=== PATIENT | male | born 1940 | race Caucasian/White ===

== ENCOUNTER 2018-04-01 18:15 | Inpatient (IN) | payer MEDICARE, OTHER ==
[~2018-04-01] VITALS: Ht 182.9 cm; Wt 72.7 kg
[2018-04-01] MEDS ORDERED: normal saline 1000ML IV soln IVB ONE (18:45)
[2018-04-01 18:57] LABS: BASOPHILS % (AUTO) 0.7 % (0-1); EOSINOPHILS # (AUTO) 0.1 X10'3 (0-0.9); EOSINOPHILS % (AUTO) 1.7 % (0-6); HEMATOCRIT 41.4 % (42.0-52.0); LYMPHOCYTES # (AUTO) 0.7 X10'3 (1.1-4.8); MEAN CORPUSCULAR HEMOGLOBIN 32.1 PG (27.0-31.0); MEAN CORPUSCULAR HGB CONC 33.7 % (33.0-36.5); MEAN CORPUSCULAR VOLUME 95.2 FL (78-98); MONOCYTES # (AUTO) 0.3 X10'3 (0-0.9); MONOCYTES % (AUTO) 4.6 % (2-12); NEUTROPHILS # (AUTO) 5.6 X10'3 (1.8-7.7); PLATELET COUNT 273 X10'3 (140-440); RED BLOOD COUNT 4.35 X10'6 (4.70-6.10); RED CELL DISTRIBUTION WIDTH 14.1 % (11.5-14.5); WHITE BLOOD COUNT 6.8 X10'3 (4.5-11.0)
[2018-04-01 19:09] LABS: CLARITY,URINE CLEAR (Clear); COLOR,URINE YELLOW (Yellow); GLUCOSE, URINE NEGATIVE (Neg); KETONES,URINE TRACE mg/dl (Neg); LEUKOCYTE ESTERASE ,URINE NEGATIVE (Neg); NITRITES, URINE POSITIVE (Neg); OCCULT BLOOD,URINE MODERATE (Neg); PROTEIN,URINE NEGATIVE (Neg); UROBILINOGEN,URINE 0.2 E.U/dL (0.2-1.0)
[2018-04-01 19:13] LABS: INR 0.9 INR; PARTIAL THROMBOPLASTIN TIME 27 SECONDS (22-32); PROTHROMBIN TIME 9.6 SECONDS (9.0-12.0)
[2018-04-01 19:16] LABS: UA COLLECTION TYPE CLN CATCH MIDSTREAM
[2018-04-01 19:19] LABS: RBC,URINE 0-2 /HPF (0-2); WBC,URINE 0-4 /HPF (0-4)
[2018-04-01 19:20] LABS: BACTERIA,URINE FEW /HPF (Neg); MUCUS STRANDS NONE SEEN /LPF (Neg); SQUAMOUS EPITHELIAL CELL,UR NONE SEEN /LPF (FEW); URINE AMPHETAMINE SCREEN NEGATIVE (Neg); URINE BARBITUATE SCREEN NEGATIVE (Neg); URINE BENZODIAZEPINES SCREEN NEGATIVE (Neg); URINE CANNABINOID SCREEN NEGATIVE (Neg); URINE COCAINE SCREEN NEGATIVE (Neg); URINE METHADONE SCREEN NEGATIVE (Neg); URINE OPIATE SCREEN NEGATIVE (Neg); URINE PHENCYCLIDINE SCREEN NEGATIVE (Neg)
[2018-04-01 19:21] LABS: ALANINE AMINOTRANSFERASE 19 U/L (12-78); ALBUMIN 3.3 G/DL (3.4-5.0); ALKALINE PHOSPHATASE 69 IU/L (46-116); ANION GAP 9 (8-16); ASPARTATE AMINO TRANSFERASE 18 U/L (10-37); BILIRUBIN,TOTAL 0.3 MG/DL (0.1-1.0); BLOOD UREA NITROGEN 8 MG/DL (7-18); BUN/CREATININE RATIO 10.4 (5.4-32.0); CALCIUM 8.9 MG/DL (8.5-10.1); CHLORIDE 94 MMOL/L (99-107); CREATININE 0.77 MG/DL (0.60-1.10); ETHANOL 0.035 GM/DL (0.0-0.010); GLUCOSE 134 MG/DL (70-104); SODIUM 129 MMOL/L (135-145); TOTAL CARBON DIOXIDE 26.2 MMOL/L (24-32); TOTAL PROTEIN 6.7 G/DL (6.4-8.2); eGFR > 90 ML/MIN
[2018-04-01] MEDS ORDERED: normal saline 1000ml 1,000 ML IV ONE (20:00)
[2018-04-01] MEDS ORDERED: acetaminophen 325mg tablet PO PRN ×2 (22:40)
[2018-04-01] MEDS ORDERED: haloperidol lactate 5mg/ml inj IM PRN (22:40)
[2018-04-01] MEDS ORDERED: magnesium hydroxide 30ml (MOM) UD suspension PO PRN (22:40)
[2018-04-01] MEDS ORDERED: mag hydrox/Alum hydrox/simeth 30ml oral suspension PO PRN (22:40)
[2018-04-01] MEDS ORDERED: haloperidol 5mg tablet PO PRN (22:40)
[2018-04-01] MEDS ORDERED: LORazepam 2 mg/ml vial IV PRN (22:40)
[2018-04-01] MEDS ORDERED: ondansetron/PF 4mg/2ml inj IV PRN (22:40)
[2018-04-01] MEDS ORDERED: NO HOME MEDS (23:16)
[2018-04-02] MEDS ORDERED: aspirin 81mg tablet.DR PO ONE (00:05)
[2018-04-02] MEDS: CefTRIAXone 2gm/D5W 50ml 50 ML IV SCH ×2 (00:27→23:07)
[2018-04-02] MEDS ORDERED: iohexol 350MG/ML 100ml bottle IV ONE (00:35)
[2018-04-02] MEDS ORDERED: enoxaparin 30mg/0.3ml syringe SUBCUT ONE (02:55)
[2018-04-02] MEDS ORDERED: enoxaparin 40mg/0.4ml syringe SUBCUT ONE (02:55)
[2018-04-02 04:30] VITALS: BP 150/85
[2018-04-02 07:10] LABS: BASOPHILS % (AUTO) 0.3 % (0-1); EOSINOPHILS # (AUTO) 0.1 X10'3 (0-0.9); EOSINOPHILS % (AUTO) 1.9 % (0-6); HEMOGLOBIN 13.1 g/dl (14.0-17.9); LYMPHOCYTES # (AUTO) 0.8 X10'3 (1.1-4.8); LYMPHOCYTES % (AUTO) 12.4 % (21-51); MEAN CORPUSCULAR HEMOGLOBIN 31.9 PG (27.0-31.0); MEAN CORPUSCULAR HGB CONC 33.6 % (33.0-36.5); MEAN CORPUSCULAR VOLUME 94.9 FL (78-98); MEAN PLATELET VOLUME 7.1 FL (7.4-10.4); MONOCYTES # (AUTO) 0.5 X10'3 (0-0.9); MONOCYTES % (AUTO) 7.7 % (2-12); NEUTROPHILS # (AUTO) 4.8 X10'3 (1.8-7.7); NEUTROPHILS % (AUTO) 77.7 % (42-75); PLATELET COUNT 255 X10'3 (140-440); RED CELL DISTRIBUTION WIDTH 14.3 % (11.5-14.5); WHITE BLOOD COUNT 6.2 X10'3 (4.5-11.0)
[2018-04-02 07:23] LABS: ALBUMIN 2.9 G/DL (3.4-5.0); ANION GAP 8 (8-16); BLOOD UREA NITROGEN 7 MG/DL (7-18); BUN/CREATININE RATIO 10.4 (5.4-32.0); CALCIUM 8.8 MG/DL (8.5-10.1); CHLORIDE 98 MMOL/L (99-107); CREATININE 0.67 MG/DL (0.60-1.10); GLUCOSE 92 MG/DL (70-104); MAGNESIUM 1.9 MG/DL (1.5-2.4); POTASSIUM 3.9 MMOL/L (3.5-5.1); SODIUM 131 MMOL/L (135-145); TOTAL CARBON DIOXIDE 24.9 MMOL/L (24-32); eGFR > 90 ML/MIN
[2018-04-02] MEDS: folic acid 1mg tablet PO SCH (07:23)
[2018-04-02] MEDS: thiamine 100mg tablet PO SCH (07:24)
[2018-04-02] MEDS: multivitamins, therapeutics tablet PO SCH (07:24)
[2018-04-02] MEDS ORDERED: aspirin 325mg tablet PO SCH (08:30)
[2018-04-02 08:44] VITALS: BP 124/75
[2018-04-02 09:29] LABS: CHOL/HDL RATIO 1.7 (0.00-4.99); CHOLESTEROL 169 MG/DL (0-200); HDL CHOLESTEROL 98 MG/DL (35-60); LDL CHOLESTEROL 65 MG/DL (50-100); TRIGLYCERIDES 40 MG/DL (20-135)
[2018-04-02] MEDS: normal saline 1000ml 1,000 ML IV SCH ×2 (09:44→23:18)
[2018-04-02 11:00] VITALS: BP 119/71
[2018-04-02 15:00] VITALS: BP 113/62
[2018-04-02] MEDS ORDERED: aminophylline 250mg/10ml inj. IV PRN (18:20)
[2018-04-02] MEDS ORDERED: regadenoson 0.4mg/5ml syringe IV ONE (18:20)
[2018-04-02] MEDS ORDERED: metoprolol tartrate 1mg/ml inj IV PRN (18:20)
[2018-04-02] MEDS ORDERED: nitroGLYCERIN 0.4mg SUBLingual tab SL PRN (18:20)
[2018-04-02 19:00] VITALS: BP 135/73
[2018-04-02] MEDS: metoprolol tartrate 12.5mg (1/2 tablet) PO SCH (20:22)
[2018-04-02 23:00] VITALS: BP 139/56
[2018-04-03] VITALS (12 sets, daily range): BP systolic 89–146; BP diastolic 54–96
[2018-04-03 07:54] LABS: BASOPHILS % (AUTO) 0.5 % (0-1); EOSINOPHILS # (AUTO) 0.1 X10'3 (0-0.9); EOSINOPHILS % (AUTO) 2.6 % (0-6); HEMATOCRIT 37.4 % (42.0-52.0); HEMOGLOBIN 12.9 g/dl (14.0-17.9); LYMPHOCYTES # (AUTO) 0.7 X10'3 (1.1-4.8); LYMPHOCYTES % (AUTO) 13.6 % (21-51); MEAN CORPUSCULAR HEMOGLOBIN 32.7 PG (27.0-31.0); MEAN CORPUSCULAR HGB CONC 34.5 % (33.0-36.5); MEAN PLATELET VOLUME 7.7 FL (7.4-10.4); MONOCYTES # (AUTO) 0.4 X10'3 (0-0.9); MONOCYTES % (AUTO) 7.5 % (2-12); NEUTROPHILS # (AUTO) 3.9 X10'3 (1.8-7.7); NEUTROPHILS % (AUTO) 75.8 % (42-75); PLATELET COUNT 245 X10'3 (140-440); RED BLOOD COUNT 3.94 X10'6 (4.70-6.10); WHITE BLOOD COUNT 5.2 X10'3 (4.5-11.0)
[2018-04-03 08:23] LABS: ALBUMIN 2.7 G/DL (3.4-5.0); ANION GAP 7 (8-16); BLOOD UREA NITROGEN 8 MG/DL (7-18); BUN/CREATININE RATIO 12.9 (5.4-32.0); CALCIUM 8.6 MG/DL (8.5-10.1); CHLORIDE 99 MMOL/L (99-107); CREATININE 0.62 MG/DL (0.60-1.10); GLUCOSE 86 MG/DL (70-104); MAGNESIUM 1.9 MG/DL (1.5-2.4); POTASSIUM 3.7 MMOL/L (3.5-5.1); SODIUM 132 MMOL/L (135-145); TOTAL CARBON DIOXIDE 25.8 MMOL/L (24-32); eGFR > 90 ML/MIN
[2018-04-03] MEDS: aspirin 81mg tablet.DR PO SCH (08:53)
[2018-04-03] MEDS: enoxaparin 40mg/0.4ml syringe SUBCUT SCH (08:53)
[2018-04-03] MEDS ORDERED: aminophylline inj. 10 ML IV ONE (10:10)
[2018-04-03] MEDS ORDERED: regadenoson 0.4mg/5ml syringe IV ONE (10:10)
[2018-04-03] MEDS: multivitamins, therapeutics tablet PO SCH (12:05)
[2018-04-03] MEDS: atorvastatin 20mg tablet PO SCH (12:07)
[2018-04-03] MEDS: thiamine 100mg tablet PO SCH (12:08)
[2018-04-03] MEDS: folic acid 1mg tablet PO SCH (12:09)
[2018-04-03] MEDS: metoprolol tartrate 12.5mg (1/2 tablet) PO SCH ×2 (12:09→20:22)
[2018-04-03] MEDS: normal saline 1000ml 1,000 ML IV SCH (13:21)
[2018-04-03] MEDS ORDERED: potassium Cl 20 mEq SR tablet PO STA (16:43)
[2018-04-03] MEDS ORDERED: magnesium 2GM in 50ml NS 50 ML IV ONE (16:45)
[2018-04-03] MEDS ORDERED: haloperidol lactate 5mg/ml inj IM PRN (18:15)
[2018-04-03] MEDS ORDERED: haloperidol 5mg tablet PO PRN (18:15)
[2018-04-03] MEDS ORDERED: dextrose 50%-water 50ml dispensing syringe IV PRN (18:15)
[2018-04-03] MEDS ORDERED: LORazepam 2 mg/ml vial IV PRN ×2 (18:15→22:40)
[2018-04-03] MEDS: CefTRIAXone 2gm/D5W 50ml 50 ML IV SCH (22:34)
[2018-04-03] MEDS ORDERED: LORazepam 1 MG tablet PO PRN (22:40)
[2018-04-04 03:00] VITALS: BP 115/62
[2018-04-04] MEDS: normal saline 1000ml 1,000 ML IV SCH ×2 (03:39→16:35)
[2018-04-04 06:00] VITALS: BP 124/59
[2018-04-04 07:18] LABS: BASOPHILS # (AUTO) 0.1 X10'3 (0-0.2); BASOPHILS % (AUTO) 0.8 % (0-1); EOSINOPHILS # (AUTO) 0.1 X10'3 (0-0.9); EOSINOPHILS % (AUTO) 1.4 % (0-6); HEMATOCRIT 40.5 % (42.0-52.0); HEMOGLOBIN 13.5 g/dl (14.0-17.9); LYMPHOCYTES # (AUTO) 0.7 X10'3 (1.1-4.8); LYMPHOCYTES % (AUTO) 9.4 % (21-51); MEAN CORPUSCULAR HGB CONC 33.4 % (33.0-36.5); MEAN CORPUSCULAR VOLUME 95.6 FL (78-98); MEAN PLATELET VOLUME 8.2 FL (7.4-10.4); MONOCYTES # (AUTO) 0.5 X10'3 (0-0.9); MONOCYTES % (AUTO) 6.3 % (2-12); NEUTROPHILS # (AUTO) 6.1 X10'3 (1.8-7.7); NEUTROPHILS % (AUTO) 82.1 % (42-75); PLATELET COUNT 242 X10'3 (140-440); RED BLOOD COUNT 4.23 X10'6 (4.70-6.10); RED CELL DISTRIBUTION WIDTH 14.1 % (11.5-14.5); WHITE BLOOD COUNT 7.4 X10'3 (4.5-11.0)
[2018-04-04 07:28] LABS: ALBUMIN 2.9 G/DL (3.4-5.0); ANION GAP 7 (8-16); BLOOD UREA NITROGEN 9 MG/DL (7-18); BUN/CREATININE RATIO 14.1 (5.4-32.0); CALCIUM 8.4 MG/DL (8.5-10.1); CHLORIDE 95 MMOL/L (99-107); CREATININE 0.64 MG/DL (0.60-1.10); GLUCOSE 77 MG/DL (70-104); MAGNESIUM 2.1 MG/DL (1.5-2.4); POTASSIUM 3.9 MMOL/L (3.5-5.1); SODIUM 127 MMOL/L (135-145); TOTAL CARBON DIOXIDE 24.6 MMOL/L (24-32); eGFR > 90 ML/MIN
[2018-04-04] MEDS: enoxaparin 40mg/0.4ml syringe SUBCUT SCH (09:28)
[2018-04-04] MEDS: aspirin 81mg tablet.DR PO SCH (09:29)
[2018-04-04] MEDS: folic acid 1mg tablet PO SCH (09:29)
[2018-04-04] MEDS: atorvastatin 20mg tablet PO SCH (09:29)
[2018-04-04] MEDS: thiamine 100mg tablet PO SCH (09:29)
[2018-04-04] MEDS: multivitamins, therapeutics tablet PO SCH (09:30)
[2018-04-04] MEDS: metoprolol tartrate 12.5mg (1/2 tablet) PO SCH ×2 (09:30→19:45)
[2018-04-04 11:00] VITALS: BP 113/60
[2018-04-04] MEDS: nicotine 14mg patch - 24hr TD SCH (11:33)
[2018-04-04] MEDS ORDERED: potassium Cl 40MEQ/NS 500ml 500 ML IV PRN ×2 (12:35)
[2018-04-04] MEDS ORDERED: magnesium 4gm in 100ml NS 100 ML IV PRN (12:35)
[2018-04-04] MEDS ORDERED: magnesium Cl slow-release 64mg tablet PO PRN (12:35)
[2018-04-04] MEDS ORDERED: potassium Cl 20 mEq SR tablet PO PRN (12:35)
[2018-04-04] MEDS: potassium Cl 20 mEq SR tablet PO PRN ×2 (14:22→23:35)
[2018-04-04 15:00] VITALS: BP 95/59
[2018-04-04 18:00] VITALS: BP 138/67
[2018-04-04 22:00] VITALS: BP 138/68
[2018-04-05] VITALS (7 sets, daily range): BP systolic 120–147; BP diastolic 55–83
[2018-04-05 05:06] LABS: BASOPHILS % (AUTO) 0.7 % (0-1); EOSINOPHILS # (AUTO) 0.2 X10'3 (0-0.9); EOSINOPHILS % (AUTO) 3.7 % (0-6); HEMATOCRIT 40.9 % (42.0-52.0); HEMOGLOBIN 13.7 g/dl (14.0-17.9); LYMPHOCYTES # (AUTO) 0.9 X10'3 (1.1-4.8); LYMPHOCYTES % (AUTO) 14.1 % (21-51); MEAN CORPUSCULAR HEMOGLOBIN 32.1 PG (27.0-31.0); MEAN CORPUSCULAR HGB CONC 33.6 % (33.0-36.5); MEAN CORPUSCULAR VOLUME 95.6 FL (78-98); MEAN PLATELET VOLUME 8.1 FL (7.4-10.4); MONOCYTES # (AUTO) 0.5 X10'3 (0-0.9); MONOCYTES % (AUTO) 8.7 % (2-12); NEUTROPHILS # (AUTO) 4.5 X10'3 (1.8-7.7); NEUTROPHILS % (AUTO) 72.8 % (42-75); PLATELET COUNT 263 X10'3 (140-440); RED BLOOD COUNT 4.28 X10'6 (4.70-6.10); RED CELL DISTRIBUTION WIDTH 14.1 % (11.5-14.5); WHITE BLOOD COUNT 6.2 X10'3 (4.5-11.0)
[2018-04-05 05:46] LABS: ALBUMIN 2.8 G/DL (3.4-5.0); ANION GAP 8 (8-16); BLOOD UREA NITROGEN 10 MG/DL (7-18); BUN/CREATININE RATIO 14.9 (5.4-32.0); CALCIUM 8.8 MG/DL (8.5-10.1); CHLORIDE 98 MMOL/L (99-107); CREATININE 0.67 MG/DL (0.60-1.10); GLUCOSE 82 MG/DL (70-104); POTASSIUM 4.3 MMOL/L (3.5-5.1); SODIUM 132 MMOL/L (135-145); TOTAL CARBON DIOXIDE 26.5 MMOL/L (24-32); eGFR > 90 ML/MIN
[2018-04-05] MEDS: folic acid 1mg tablet PO SCH (08:17)
[2018-04-05] MEDS: metoprolol tartrate 12.5mg (1/2 tablet) PO SCH ×3 (08:17→20:10)
[2018-04-05] MEDS: nicotine 14mg patch - 24hr TD SCH (08:18)
[2018-04-05] MEDS: enoxaparin 40mg/0.4ml syringe SUBCUT SCH (08:18)
[2018-04-05] MEDS: aspirin 81mg tablet.DR PO SCH (08:18)
[2018-04-05] MEDS: atorvastatin 20mg tablet PO SCH (08:18)
[2018-04-05] MEDS: multivitamins, therapeutics tablet PO SCH (08:18)
[2018-04-05] MEDS: thiamine 100mg tablet PO SCH (08:18)
[2018-04-05] MEDS: normal saline 1000ml 1,000 ML IV SCH (08:19)
[2018-04-05] MEDS: LORazepam 2 mg/ml vial IV PRN ×3 (17:56→22:46)
[2018-04-05] MEDS ORDERED: LORazepam 1 MG tablet PO PRN ×2 (18:15→22:40)
[2018-04-05] MEDS ORDERED: LORazepam 2 mg/ml vial IV PRN (22:40)
[2018-04-06 02:00] VITALS: BP 135/75
[2018-04-06 05:49] LABS: BASOPHILS # (AUTO) 0.1 X10'3 (0-0.2); BASOPHILS % (AUTO) 0.9 % (0-1); EOSINOPHILS # (AUTO) 0.2 X10'3 (0-0.9); EOSINOPHILS % (AUTO) 3.2 % (0-6); HEMATOCRIT 37.9 % (42.0-52.0); HEMOGLOBIN 12.8 g/dl (14.0-17.9); LYMPHOCYTES # (AUTO) 0.9 X10'3 (1.1-4.8); LYMPHOCYTES % (AUTO) 13.4 % (21-51); MEAN CORPUSCULAR HEMOGLOBIN 32.3 PG (27.0-31.0); MEAN CORPUSCULAR HGB CONC 33.9 % (33.0-36.5); MEAN CORPUSCULAR VOLUME 95.2 FL (78-98); MEAN PLATELET VOLUME 7.7 FL (7.4-10.4); MONOCYTES # (AUTO) 0.6 X10'3 (0-0.9); MONOCYTES % (AUTO) 9.4 % (2-12); NEUTROPHILS # (AUTO) 4.7 X10'3 (1.8-7.7); NEUTROPHILS % (AUTO) 73.1 % (42-75); PLATELET COUNT 280 X10'3 (140-440); RED BLOOD COUNT 3.98 X10'6 (4.70-6.10); WHITE BLOOD COUNT 6.4 X10'3 (4.5-11.0)
[2018-04-06 06:00] VITALS: BP 146/72
[2018-04-06 06:02] LABS: ALBUMIN 2.7 G/DL (3.4-5.0); ANION GAP 8 (8-16); BLOOD UREA NITROGEN 8 MG/DL (7-18); BUN/CREATININE RATIO 12.5 (5.4-32.0); CALCIUM 8.8 MG/DL (8.5-10.1); CHLORIDE 96 MMOL/L (99-107); CREATININE 0.64 MG/DL (0.60-1.10); GLUCOSE 90 MG/DL (70-104); MAGNESIUM 1.8 MG/DL (1.5-2.4); POTASSIUM 3.4 MMOL/L (3.5-5.1); SODIUM 131 MMOL/L (135-145); TOTAL CARBON DIOXIDE 27.5 MMOL/L (24-32); eGFR > 90 ML/MIN
[2018-04-06] MEDS: aspirin 81mg tablet.DR PO SCH (09:01)
[2018-04-06] MEDS: atorvastatin 20mg tablet PO SCH (09:02)
[2018-04-06] MEDS: multivitamins, therapeutics tablet PO SCH (09:02)
[2018-04-06] MEDS: metoprolol tartrate 12.5mg (1/2 tablet) PO SCH ×2 (09:02→20:29)
[2018-04-06] MEDS: thiamine 100mg tablet PO SCH (09:02)
[2018-04-06] MEDS: folic acid 1mg tablet PO SCH (09:02)
[2018-04-06] MEDS: enoxaparin 40mg/0.4ml syringe SUBCUT SCH (09:03)
[2018-04-06] MEDS: nicotine 14mg patch - 24hr TD SCH (09:08)
[2018-04-06 11:00] VITALS: BP 140/70
[2018-04-06 15:00] VITALS: BP 150/82
[2018-04-06 23:00] VITALS: BP 155/69
[2018-04-07 03:00] VITALS: BP 131/79
[2018-04-07 06:00] VITALS: BP 129/68
[2018-04-07 08:12] LABS: BASOPHILS % (AUTO) 0.2 % (0-1); EOSINOPHILS # (AUTO) 0.2 X10'3 (0-0.9); EOSINOPHILS % (AUTO) 2.9 % (0-6); HEMOGLOBIN 14.3 g/dl (14.0-17.9); LYMPHOCYTES # (AUTO) 0.6 X10'3 (1.1-4.8); LYMPHOCYTES % (AUTO) 10.5 % (21-51); MEAN CORPUSCULAR HEMOGLOBIN 32.2 PG (27.0-31.0); MEAN CORPUSCULAR VOLUME 94.8 FL (78-98); MEAN PLATELET VOLUME 7.6 FL (7.4-10.4); MONOCYTES # (AUTO) 0.4 X10'3 (0-0.9); MONOCYTES % (AUTO) 6.3 % (2-12); NEUTROPHILS # (AUTO) 4.5 X10'3 (1.8-7.7); NEUTROPHILS % (AUTO) 80.1 % (42-75); PLATELET COUNT 312 X10'3 (140-440); RED BLOOD COUNT 4.43 X10'6 (4.70-6.10); RED CELL DISTRIBUTION WIDTH 13.8 % (11.5-14.5); WHITE BLOOD COUNT 5.6 X10'3 (4.5-11.0)
[2018-04-07 08:21] LABS: ALBUMIN 2.9 G/DL (3.4-5.0); ANION GAP 9 (8-16); BLOOD UREA NITROGEN 10 MG/DL (7-18); BUN/CREATININE RATIO 14.7 (5.4-32.0); CALCIUM 9.3 MG/DL (8.5-10.1); CHLORIDE 97 MMOL/L (99-107); CREATININE 0.68 MG/DL (0.60-1.10); GLUCOSE 79 MG/DL (70-104); POTASSIUM 4.1 MMOL/L (3.5-5.1); SODIUM 133 MMOL/L (135-145); TOTAL CARBON DIOXIDE 27.4 MMOL/L (24-32); eGFR > 90 ML/MIN
[2018-04-07] MEDS: thiamine 100mg tablet PO SCH (08:27)
[2018-04-07] MEDS: aspirin 81mg tablet.DR PO SCH (08:28)
[2018-04-07] MEDS: metoprolol tartrate 12.5mg (1/2 tablet) PO SCH ×2 (08:28→19:50)
[2018-04-07] MEDS: folic acid 1mg tablet PO SCH (08:28)
[2018-04-07] MEDS: atorvastatin 20mg tablet PO SCH (08:29)
[2018-04-07] MEDS: enoxaparin 40mg/0.4ml syringe SUBCUT SCH (08:29)
[2018-04-07] MEDS: multivitamins, therapeutics tablet PO SCH (08:29)
[2018-04-07] MEDS: nicotine 14mg patch - 24hr TD SCH (08:30)
[2018-04-07 11:00] VITALS: BP 110/58
[2018-04-07] MEDS: LORazepam 2 mg/ml vial IV PRN (14:05)
[2018-04-07 15:00] VITALS: BP 149/80
[2018-04-07] MEDS ORDERED: LORazepam 1 MG tablet PO PRN (18:15)
[2018-04-07] MEDS ORDERED: LORazepam 2 mg/ml vial IV PRN (18:15)
[2018-04-07 19:00] VITALS: BP 115/65
[2018-04-07 23:00] VITALS: BP 139/85
[2018-04-08 03:00] VITALS: BP 127/66
[2018-04-08 06:00] VITALS: BP 128/85
[2018-04-08] MEDS: atorvastatin 20mg tablet PO SCH (08:09)
[2018-04-08] MEDS: folic acid 1mg tablet PO SCH (08:10)
[2018-04-08] MEDS: multivitamins, therapeutics tablet PO SCH (08:10)
[2018-04-08] MEDS: metoprolol tartrate 12.5mg (1/2 tablet) PO SCH (08:11)
[2018-04-08] MEDS: aspirin 81mg tablet.DR PO SCH (08:12)
[2018-04-08] MEDS: thiamine 100mg tablet PO SCH (08:12)
[2018-04-08] MEDS: nicotine 14mg patch - 24hr TD SCH (08:15)
[2018-04-08] MEDS: enoxaparin 40mg/0.4ml syringe SUBCUT SCH (08:15)
[2018-04-08 11:00] VITALS: BP 103/68
== END 2018-04-08 11:36 | DRG 280 ==
LOC: ER 18:15 → ED HOLD 22:39 → EDBEDREQ 04-02 02:30 → PCU 3S 04-02 04:09
PROVIDERS: ADMIT Internal Medicine; ATTEND Family Medicine
PROC: B32T1ZZ Computerized Tomography (CT Scan) of Left Pulmonary Artery using Low Osmolar Contrast (ICD-10-PCS; 2018-04-02)
PROC: B3201ZZ Computerized Tomography (CT Scan) of Thoracic Aorta using Low Osmolar Contrast (ICD-10-PCS; 2018-04-02)
PROC: B32S1ZZ Computerized Tomography (CT Scan) of Right Pulmonary Artery using Low Osmolar Contrast (ICD-10-PCS; 2018-04-02)
PROC: 4A02XM4 Measurement of Cardiac Total Activity, External Approach (ICD-10-PCS; principal; 2018-04-03)
PROC: 3E033HZ Introduction of Radioactive Substance into Peripheral Vein, Percutaneous Approach (ICD-10-PCS; 2018-04-03)
PROC: 3E02340 Introduction of Influenza Vaccine into Muscle, Percutaneous Approach (ICD-10-PCS; 2018-04-03)
DX: I21.4 Non-ST elevation (NSTEMI) myocardial infarction (principal); G92 Toxic encephalopathy; N39.0 Urinary tract infection, site not specified; E87.1 Hypo-osmolality and hyponatremia; F10.239 Alcohol dependence with withdrawal, unspecified; W18.39XA Other fall on same level, initial encounter; S09.90XA Unspecified injury of head, initial encounter; I25.10 Atherosclerotic heart disease of native coronary artery without angina pectoris; J44.9 Chronic obstructive pulmonary disease, unspecified; K86.9 Disease of pancreas, unspecified; F17.200 Nicotine dependence, unspecified, uncomplicated; Z60.2 Problems related to living alone; Z23 Encounter for immunization; Z89.021 Acquired absence of right finger(s); Z79.82 Long term (current) use of aspirin; Z86.73 Personal history of transient ischemic attack (TIA), and cerebral infarction without residual deficits; Y93.89 Activity, other specified; Y92.098 Other place in other non-institutional residence as the place of occurrence of the external cause; Y99.8 Other external cause status; Z71.41 Alcohol abuse counseling and surveillance of alcoholic; Z71.6 Tobacco abuse counseling
CPT/HCPCS: 36415; 70450; 71045; 71275; 78452; 80048; 80053; 80061; 80305; 80320; 81001; 82140; 83735; 84484; 85025; 85610; 85730; 87040; 87070; 87088; 93005; 93017; 93306; 96360; 97116; 97161; 99285; A9500; G0378; J0280; J0696; J1650; J2060; J3475; J7030; Q9967

== ENCOUNTER 2018-07-03 00:28 | Emergency (ER) | payer MEDICARE, OTHER ==
[~2018-07-03] VITALS: Ht 185.4 cm; Wt 75.0 kg
[~2018-07-03 00:28] MED LIST: NO HOME MEDS
[2018-07-03 00:33] VITALS: BP 170/83
--- NOTE | 2018-07-03 02:32 | NUR ---
DR BUENROSTRO AT BEDSIDE WITH PT
[2018-07-03 03:17] LABS: BASOPHILS # (AUTO) 0.1 X10'3 (0-0.2); BASOPHILS % (AUTO) 0.9 % (0-1); EOSINOPHILS # (AUTO) 0.2 X10'3 (0-0.9); EOSINOPHILS % (AUTO) 3.1 % (0-6); HEMATOCRIT 36.8 % (42.0-52.0); HEMOGLOBIN 12.7 g/dl (14.0-17.9); LYMPHOCYTES # (AUTO) 1.4 X10'3 (1.1-4.8); LYMPHOCYTES % (AUTO) 21.1 % (21-51); MEAN CORPUSCULAR HEMOGLOBIN 32.4 PG (27.0-31.0); MEAN CORPUSCULAR HGB CONC 34.6 g/dL (33.0-36.5); MEAN CORPUSCULAR VOLUME 93.6 FL (78-98); MEAN PLATELET VOLUME 7.6 FL (7.4-10.4); MONOCYTES # (AUTO) 0.5 X10'3 (0-0.9); MONOCYTES % (AUTO) 7.1 % (2-12); NEUTROPHILS # (AUTO) 4.4 X10'3 (1.8-7.7); NEUTROPHILS % (AUTO) 67.8 % (42-75); PLATELET COUNT 340 X10'3 (140-440); RED BLOOD COUNT 3.93 X10'6 (4.70-6.10); RED CELL DISTRIBUTION WIDTH 13.8 % (11.5-14.5); WHITE BLOOD COUNT 6.5 X10'3 (4.5-11.0)
[2018-07-03 03:25] LABS: ALANINE AMINOTRANSFERASE 20 U/L (12-78); ALBUMIN 3.7 G/DL (3.4-5.0); ALBUMIN/GLOBULIN RATIO 0.9 (1.1-1.5); ALKALINE PHOSPHATASE 140 IU/L (46-116); ANION GAP 7 (8-16); ASPARTATE AMINO TRANSFERASE 17 U/L (10-37); BILIRUBIN,TOTAL 0.3 MG/DL (0.1-1.0); BLOOD UREA NITROGEN 16 MG/DL (7-18); BUN/CREATININE RATIO 21.9 (5.4-32.0); CALCIUM 9.8 MG/DL (8.5-10.1); CHLORIDE 96 MMOL/L (99-107); CREATININE 0.73 MG/DL (0.60-1.10); GLUCOSE 86 MG/DL (70-104); SODIUM 132 MMOL/L (135-145); TOTAL CARBON DIOXIDE 28.8 MMOL/L (24-32); TOTAL PROTEIN 7.9 G/DL (6.4-8.2); eGFR > 90 ML/MIN
[2018-07-03 03:34] LABS: MAGNESIUM 2.2 MG/DL (1.5-2.4)
--- NOTE | 2018-07-03 03:53 | NUR ---
DR BUENROSTRO AT BEDSIDE SPEAKING WITH PT ABOUT LAB RESULTS.
== END 2018-07-03 03:56 | disposition home or self-care (01) ==
LOC: ER 00:29
DX: R42 Dizziness and giddiness (principal); R06.02 Shortness of breath; Z86.73 Personal history of transient ischemic attack (TIA), and cerebral infarction without residual deficits; F17.200 Nicotine dependence, unspecified, uncomplicated; Z60.2 Problems related to living alone
CPT/HCPCS: 36415; 71045; 80053; 83735; 83880; 84484; 85025; 93005; 99284

== ENCOUNTER 2018-07-14 01:05 | Emergency (ER) | payer MEDICARE, OTHER ==
[~2018-07-14] VITALS: Ht 185.4 cm; Wt 72.0 kg
[2018-07-14 01:06] VITALS: BP 154/86
[2018-07-14] MEDS ORDERED: LORazepam 0.5 MG tablet PO PRN (01:15)
[2018-07-14] MEDS ORDERED: MELA2.5T PO (01:16)
== END 2018-07-14 01:30 | disposition home or self-care (01) ==
LOC: ER 01:06
DX: G47.00 Insomnia, unspecified (principal); Z86.73 Personal history of transient ischemic attack (TIA), and cerebral infarction without residual deficits
CPT/HCPCS: 99283

== ENCOUNTER 2019-08-24 22:40 | Emergency (ER) | payer MEDICARE ==
[~2019-08-24] VITALS: Ht 185.4 cm; Wt 75.0 kg
[~2019-08-24 22:40] MED LIST changes: +MELA2.5T PO
[2019-08-24 23:27] LABS: BASOPHILS # (AUTO) 0.1 X10'3 (0-0.2); BASOPHILS % (AUTO) 0.9 % (0-1); EOSINOPHILS # (AUTO) 0.3 X10'3 (0-0.9); EOSINOPHILS % (AUTO) 4.6 % (0-6); HEMATOCRIT 37.6 % (42.0-52.0); HEMOGLOBIN 12.5 g/dl (14.0-17.9); LYMPHOCYTES # (AUTO) 1.6 X10'3 (1.1-4.8); LYMPHOCYTES % (AUTO) 21.2 % (21-51); MEAN CORPUSCULAR HEMOGLOBIN 30.8 PG (27.0-31.0); MEAN CORPUSCULAR HGB CONC 33.2 g/dL (33.0-36.5); MEAN CORPUSCULAR VOLUME 92.7 FL (78-98); MEAN PLATELET VOLUME 7.1 FL (7.4-10.4); MONOCYTES # (AUTO) 0.7 X10'3 (0-0.9); MONOCYTES % (AUTO) 9.8 % (2-12); NEUTROPHILS # (AUTO) 4.7 X10'3 (1.8-7.7); NEUTROPHILS % (AUTO) 63.5 % (42-75); PLATELET COUNT 302 X10'3 (140-440); RED BLOOD COUNT 4.05 X10'6 (4.70-6.10); RED CELL DISTRIBUTION WIDTH 15.3 % (11.5-14.5); WHITE BLOOD COUNT 7.4 X10'3 (4.5-11.0)
[2019-08-24 23:43] LABS: ALANINE AMINOTRANSFERASE 16 U/L (12-78); ALBUMIN 3.4 G/DL (3.4-5.0); ALKALINE PHOSPHATASE 130 IU/L (46-116); ANION GAP 7 (8-16); ASPARTATE AMINO TRANSFERASE 15 U/L (10-37); BILIRUBIN,TOTAL 0.2 MG/DL (0.1-1.0); BLOOD UREA NITROGEN 18 MG/DL (7-18); BUN/CREATININE RATIO 21.7 (5.4-32.0); CALCIUM 8.8 MG/DL (8.5-10.1); CHLORIDE 104 MMOL/L (99-107); CREATININE 0.83 MG/DL (0.60-1.10); GLUCOSE 102 MG/DL (70-104); MAGNESIUM 2.2 MG/DL (1.5-2.4); POTASSIUM 4.2 MMOL/L (3.5-5.1); SODIUM 140 MMOL/L (135-145); TOTAL CARBON DIOXIDE 28.6 MMOL/L (24-32); TOTAL PROTEIN 6.9 G/DL (6.4-8.2); eGFR 90 ML/MIN
[2019-08-25] LABS: COLOR,URINE YELLOW (Yellow); GLUCOSE, URINE NEGATIVE (Neg); KETONES,URINE NEGATIVE (Neg); LEUKOCYTE ESTERASE ,URINE NEGATIVE (Neg); NITRITES, URINE NEGATIVE (Neg); OCCULT BLOOD,URINE NEGATIVE (Neg); PROTEIN,URINE NEGATIVE (Neg)
[2019-08-25 00:23] LABS: CLARITY,URINE SLIGHTLY CLOUDY (Clear); UA COLLECTION TYPE CLN CATCH MIDSTREAM
[2019-08-25 00:25] LABS: BACTERIA,URINE NONE SEEN /HPF (Neg); MUCUS STRANDS MANY /LPF (Neg); RBC,URINE 0-2 /HPF (0-2); SQUAMOUS EPITHELIAL CELL,UR FEW /LPF (FEW); WBC,URINE 0-4 /HPF (0-4)
[2019-08-25 01:04] VITALS: BP 153/76
== END 2019-08-25 01:06 | disposition home or self-care (01) ==
LOC: ER 22:40
DX: R53.1 Weakness (principal); R53.83 Other fatigue; J02.9 Acute pharyngitis, unspecified; Z86.73 Personal history of transient ischemic attack (TIA), and cerebral infarction without residual deficits; Z72.89 Other problems related to lifestyle; Z79.899 Other long term (current) drug therapy
CPT/HCPCS: 36415; 71045; 80053; 81001; 81003; 82948; 83735; 84484; 85025; 93005; 99285

== ENCOUNTER 2019-09-01 00:04 | Emergency (ER) | payer MEDICARE ==
[~2019-09-01] VITALS: Ht 185.4 cm; Wt 72.7 kg
--- NOTE | 2019-09-01 00:24 | NUR ---
ENCOUARGED PT TO VOID FOR URINE SPECIMAN . PT POSTIONED AT SIDE OF BED WITH URINAL FOR A SAMPLE WITHOUT SUCESS . WILL SEE IF HE CAN HAVE PO H2O TO HELP ENCOURAGE A VOID HE HAS STATED HE DOES NOT WANT A CATH AT THIS TIME
[2019-09-01 00:25] LABS: BASOPHILS % (AUTO) 0.3 % (0-1); EOSINOPHILS # (AUTO) 0.4 X10'3 (0-0.9); EOSINOPHILS % (AUTO) 4.6 % (0-6); HEMATOCRIT 37.5 % (42.0-52.0); HEMOGLOBIN 12.6 g/dl (14.0-17.9); LYMPHOCYTES # (AUTO) 1.7 X10'3 (1.1-4.8); LYMPHOCYTES % (AUTO) 21.3 % (21-51); MEAN CORPUSCULAR HEMOGLOBIN 30.9 PG (27.0-31.0); MEAN CORPUSCULAR HGB CONC 33.5 g/dL (33.0-36.5); MEAN CORPUSCULAR VOLUME 92.3 FL (78-98); MEAN PLATELET VOLUME 7.4 FL (7.4-10.4); MONOCYTES # (AUTO) 0.7 X10'3 (0-0.9); MONOCYTES % (AUTO) 9.2 % (2-12); NEUTROPHILS # (AUTO) 5.2 X10'3 (1.8-7.7); NEUTROPHILS % (AUTO) 64.6 % (42-75); PLATELET COUNT 293 X10'3 (140-440); RED BLOOD COUNT 4.06 X10'6 (4.70-6.10); RED CELL DISTRIBUTION WIDTH 15.5 % (11.5-14.5)
[2019-09-01 00:38] LABS: ALANINE AMINOTRANSFERASE 13 U/L (12-78); ALBUMIN 3.4 G/DL (3.4-5.0); ALKALINE PHOSPHATASE 133 IU/L (46-116); ANION GAP 4 (8-16); ASPARTATE AMINO TRANSFERASE 15 U/L (10-37); BILIRUBIN,TOTAL 0.3 MG/DL (0.1-1.0); BLOOD UREA NITROGEN 19 MG/DL (7-18); BUN/CREATININE RATIO 22.9 (5.4-32.0); CALCIUM 9.1 MG/DL (8.5-10.1); CHLORIDE 105 MMOL/L (99-107); CREATININE 0.83 MG/DL (0.60-1.10); GLUCOSE 105 MG/DL (70-104); SODIUM 137 MMOL/L (135-145); TOTAL CARBON DIOXIDE 27.8 MMOL/L (24-32); TOTAL PROTEIN 6.9 G/DL (6.4-8.2); eGFR 90 ML/MIN
--- NOTE | 2019-09-01 01:10 | NUR ---
PT WITH ROOFER APPLICATOR FOR GAIT TEST . PT AMBULATED WITHOUT DIFFICULTY INDEPENDENTLY WITH STEADY GAIT O2 SATS AT 93 % ROOM AIR AFTER WALK BP 172/88 HR 73
[2019-09-01 01:48] VITALS: BP 157/53
== END 2019-09-01 01:40 | disposition home or self-care (01) ==
LOC: ER 00:05
DX: R42 Dizziness and giddiness (principal); Z86.73 Personal history of transient ischemic attack (TIA), and cerebral infarction without residual deficits; Z98.890 Other specified postprocedural states; Z79.899 Other long term (current) drug therapy
CPT/HCPCS: 36415; 71045; 80053; 84484; 85025; 93005; 99285

== ENCOUNTER 2019-12-02 08:09 | Emergency (ER) | payer MEDICARE ==
[~2019-12-02] VITALS: Ht 185.4 cm; Wt 75.0 kg
[2019-12-02] MEDS ORDERED: normal saline 1000ML IV soln IVB ONE (08:15)
[2019-12-02 08:36] LABS: BASOPHILS # (AUTO) 0.1 X10'3 (0-0.2); EOSINOPHILS # (AUTO) 0.4 X10'3 (0-0.9); EOSINOPHILS % (AUTO) 5.2 % (0-6); HEMATOCRIT 38.4 % (42.0-52.0); HEMOGLOBIN 12.9 g/dl (14.0-17.9); LYMPHOCYTES # (AUTO) 1.6 X10'3 (1.1-4.8); LYMPHOCYTES % (AUTO) 18.1 % (21-51); MEAN CORPUSCULAR HEMOGLOBIN 31.3 PG (27.0-31.0); MEAN CORPUSCULAR HGB CONC 33.5 g/dL (33.0-36.5); MEAN CORPUSCULAR VOLUME 93.5 FL (78-98); MEAN PLATELET VOLUME 7.1 FL (7.4-10.4); MONOCYTES # (AUTO) 0.5 X10'3 (0-0.9); MONOCYTES % (AUTO) 5.7 % (2-12); NEUTROPHILS # (AUTO) 6.1 X10'3 (1.8-7.7); PLATELET COUNT 330 X10'3 (140-440); RED BLOOD COUNT 4.11 X10'6 (4.70-6.10); RED CELL DISTRIBUTION WIDTH 14.6 % (11.5-14.5); WHITE BLOOD COUNT 8.7 X10'3 (4.5-11.0)
[2019-12-02 08:51] LABS: ALANINE AMINOTRANSFERASE 11 U/L (12-78); ALBUMIN 3.3 G/DL (3.4-5.0); ALBUMIN/GLOBULIN RATIO 0.9 (1.1-1.5); ALKALINE PHOSPHATASE 119 IU/L (46-116); ANION GAP 6 (8-16); ASPARTATE AMINO TRANSFERASE 21 U/L (10-37); BILIRUBIN,TOTAL 0.4 MG/DL (0.1-1.0); BLOOD UREA NITROGEN 14 MG/DL (7-18); BUN/CREATININE RATIO 20.6 (5.4-32.0); CALCIUM 8.6 MG/DL (8.5-10.1); CHLORIDE 106 MMOL/L (99-107); CREATININE 0.68 MG/DL (0.60-1.10); GLUCOSE 164 MG/DL (70-104); POTASSIUM 3.4 MMOL/L (3.5-5.1); SODIUM 140 MMOL/L (135-145); TOTAL CARBON DIOXIDE 27.9 MMOL/L (24-32); TOTAL PROTEIN 7.1 G/DL (6.4-8.2); eGFR > 90 ML/MIN
[2019-12-02 08:57] LABS: MAGNESIUM 1.9 MG/DL (1.5-2.4)
[2019-12-02] MEDS ORDERED: meclizine 12.5mg tablet PO ONE (10:00)
[2019-12-02] MEDS ORDERED: diazepam 5mg tablet PO ONE (10:00)
--- NOTE | 2019-12-02 10:11 | NUR ---
Got pt up to bedside and he started to complain of dizziness and started to vomit. Asked him if his nausea gets worse with movement and he said yes. pt was not able to do a gait test due to this and the pt attempted to use the urinal at the bedside and was unable to. used a straight cath on him and sent urine. MD Agosto aware of all these details. he wants the pt to be given these meds and then in an hour retry to walk him and see if he is still dizzy and any nausea for this.
[2019-12-02 10:16] LABS: CLARITY,URINE SLIGHTLY CLOUDY (Clear); COLOR,URINE YELLOW (Yellow); GLUCOSE, URINE NEGATIVE (Neg); KETONES,URINE NEGATIVE (Neg); LEUKOCYTE ESTERASE ,URINE NEGATIVE (Neg); NITRITES, URINE NEGATIVE (Neg); OCCULT BLOOD,URINE NEGATIVE (Neg); PROTEIN,URINE NEGATIVE (Neg); UROBILINOGEN,URINE 0.2 E.U/dL (0.2-1.0)
[2019-12-02 10:18] LABS: UA COLLECTION TYPE STRAIGHT CATH
[2019-12-02 10:22] LABS: BACTERIA,URINE 1+ /HPF (Neg)
[2019-12-02 10:23] LABS: RBC,URINE 0-2 /HPF (0-2); SQUAMOUS EPITHELIAL CELL,UR FEW /LPF (FEW)
--- NOTE | 2019-12-02 11:30 | NUR ---
Orthostatic vitals taken, vitals WNL. Pt refused to perform gait test, per automotive technician. MD Agosto made aware. Pt to be discharged home.
[2019-12-02 12:39] VITALS: BP 154/76
== END 2019-12-02 13:00 | disposition home or self-care (01) ==
LOC: ER 08:10
DX: R42 Dizziness and giddiness (principal); R11.0 Nausea; R53.1 Weakness; F17.200 Nicotine dependence, unspecified, uncomplicated; Z86.73 Personal history of transient ischemic attack (TIA), and cerebral infarction without residual deficits; Z79.899 Other long term (current) drug therapy
CPT/HCPCS: 36415; 70450; 71045; 80053; 81001; 83735; 83880; 85025; 93005; 99285; J7030; J8597; 87088

== ENCOUNTER 2020-05-11 05:36 | Emergency (ER) | payer MEDICARE ==
[~2020-05-11] VITALS: Ht 188 cm; Wt 81.8 kg
[2020-05-11] MEDS ORDERED: normal saline 1000ML IV soln IVB ONE (05:40)
--- NOTE | 2020-05-11 07:05 | NUR ---
PATIENT PICKUP [facility] [phone]
[2020-05-11 07:19] VITALS: BP 152/81
== END 2020-05-11 07:27 | disposition home or self-care (01) ==
LOC: ER 05:37
DX: Z02.89 Encounter for other administrative examinations (principal); R06.02 Shortness of breath; Z86.73 Personal history of transient ischemic attack (TIA), and cerebral infarction without residual deficits; Z98.890 Other specified postprocedural states; Z79.899 Other long term (current) drug therapy
CPT/HCPCS: 71045; 93005; 99284

== ENCOUNTER 2020-08-30 01:03 | Emergency (ER) | payer MEDICARE ==
[~2020-08-30] VITALS: Ht 185.4 cm; Wt 75.0 kg
[2020-08-30 02:27] LABS: BASOPHILS # (AUTO) 0.1 X10'3 (0-0.2); BASOPHILS % (AUTO) 1.2 % (0-1); EOSINOPHILS # (AUTO) 0.3 X10'3 (0-0.9); EOSINOPHILS % (AUTO) 4.1 % (0-6); HEMATOCRIT 34.3 % (42.0-52.0); HEMOGLOBIN 11.5 g/dl (14.0-17.9); LYMPHOCYTES # (AUTO) 1.6 X10'3 (1.1-4.8); LYMPHOCYTES % (AUTO) 21.1 % (21-51); MEAN CORPUSCULAR HEMOGLOBIN 31.3 PG (27.0-31.0); MEAN CORPUSCULAR HGB CONC 33.5 g/dL (33.0-36.5); MEAN CORPUSCULAR VOLUME 93.3 FL (78-98); MEAN PLATELET VOLUME 7.4 FL (7.4-10.4); MONOCYTES # (AUTO) 0.7 X10'3 (0-0.9); MONOCYTES % (AUTO) 9.3 % (2-12); NEUTROPHILS # (AUTO) 4.8 X10'3 (1.8-7.7); NEUTROPHILS % (AUTO) 64.3 % (42-75); PLATELET COUNT 391 X10'3 (140-440); RED BLOOD COUNT 3.67 X10'6 (4.70-6.10); RED CELL DISTRIBUTION WIDTH 14.1 % (11.5-14.5); WHITE BLOOD COUNT 7.5 X10'3 (4.5-11.0)
[2020-08-30 02:28] LABS: ALANINE AMINOTRANSFERASE 19 U/L (12-78); ALBUMIN 2.8 G/DL (3.4-5.0); ALBUMIN/GLOBULIN RATIO 0.7 (1.1-1.5); ALKALINE PHOSPHATASE 121 IU/L (46-116); ANION GAP 9 (8-16); ASPARTATE AMINO TRANSFERASE 15 U/L (10-37); BILIRUBIN,TOTAL 0.2 MG/DL (0.1-1.0); BLOOD UREA NITROGEN 10 MG/DL (7-18); BUN/CREATININE RATIO 15.9 (5.4-32.0); CALCIUM 8.4 MG/DL (8.5-10.1); CHLORIDE 104 MMOL/L (99-107); CREATININE 0.63 MG/DL (0.60-1.10); GLUCOSE 108 MG/DL (70-104); POTASSIUM 3.7 MMOL/L (3.5-5.1); SODIUM 139 MMOL/L (135-145); TOTAL CARBON DIOXIDE 26.1 MMOL/L (24-32); TOTAL PROTEIN 6.6 G/DL (6.4-8.2); eGFR > 90 ML/MIN
[2020-08-30] MEDS ORDERED: ipratropium/albuterol 3ml nebule NEB ONE (03:50)
[2020-08-30] MEDS ORDERED: ALBU18HF2 INH (04:35)
[2020-08-30 05:06] VITALS: BP 145/71
== END 2020-08-30 05:11 | disposition home or self-care (01) ==
LOC: ER 01:04
DX: J44.9 Chronic obstructive pulmonary disease, unspecified (principal); I10 Essential (primary) hypertension; R06.03 Acute respiratory distress; Z86.73 Personal history of transient ischemic attack (TIA), and cerebral infarction without residual deficits; Z98.890 Other specified postprocedural states; Z79.899 Other long term (current) drug therapy
CPT/HCPCS: 36415; 71045; 80053; 85025; 93005; 94640; 94760; 99285